=== PATIENT | female | born 1985 | race Caucasian/White ===

== ENCOUNTER → 2017-04-07 | Outpatient (CLI) | payer BC, OTHER ==
[~2017-04-07] MED LIST: ASPI325T45 PO; CLON0.5T3 PO; GUAI100S18 PO; LEVO1TAB34 PO
== END | disposition home or self-care (01) ==
LOC: C.RDSM 13:21
PROVIDERS: ATTEND Physical Medicine & Rehabilitation Sports Medicine
DX: M25.561 Pain in right knee (principal)

== ENCOUNTER → 2017-11-19 | Outpatient (CLI) | payer BC ==
--- NOTE | 2017-11-19 09:01 | DIAGNOSTIC IMAGING REPORT ---
R KNEE 4 OR MORE CLINICAL HISTORY: RIGHT KNEE PAIN pain COMPARISON: 04/07/2017 DISCUSSION: The bones and joint spaces appear intact. There is no evidence of fracture, dislocation or bony disease. Joint spaces are well-maintained. Minimal peripheral osteophytic reaction from the lateral joint compartment of the right knee. No significant joint effusion. IMPRESSION: Minimal degenerative osteophytic change right knee. No acute process. Remainder of the study is negative. The above report was generated using voice recognition software. It may contain grammatical, syntax or spelling errors. Electronically signed by: Harpreet Ag M.D. 11/19/2017 9:00 AM Dictated Date/Time: 11/19/2017 8:59 AM
== END | disposition home or self-care (01) ==
LOC: C.RDSM 08:45
PROVIDERS: ATTEND Physician Assistant
DX: M22.41 Chondromalacia patellae, right knee (principal); S83.271D Complex tear of lateral meniscus, current injury, right knee, subsequent encounter; X58.XXXD Exposure to other specified factors, subsequent encounter

== ENCOUNTER → 2017-12-23 | Outpatient (CLI) | payer OTHER, BC ==
[~2017-12-23] MED LIST changes: +OPTIRAY 320 IV PRN
--- NOTE | 2017-12-23 14:14 | DIAGNOSTIC IMAGING REPORT ---
CT OF THE ABDOMEN AND PELVIS WITH CONTRAST CLINICAL HISTORY: Left groin pain. Evaluate for hernia. COMPARISON STUDY: Right upper quadrant ultrasound October 25, 2008 and renal ultrasound August 02, 2015. TECHNIQUE: Following IV administration of 119 mL of Optiray-320, axial images of the abdomen and pelvis were obtained from the lung bases to the proximal femurs. Images were reviewed in the axial, sagittal, and coronal planes. IV contrast was administered without complication. A dose lowering technique was utilized adhering to the principles of ALARA. Oral contrast was administered. CT DOSE: 1489.26 mGycm FINDINGS: The liver, spleen, adrenal glands, kidneys and pancreas are normal. There is no biliary or pancreatic ductal dilatation. There is no hydronephrosis. No perinephric infiltration is present. No urinary calculi are identified. Caliber and wall thickness of small and large bowel are normal. The appendix is normal. A 1.8 cm rim-enhancing right adnexal lesion suggests a corpus luteal cyst. The ovaries are not enlarged. There is no left groin hernia. Note is made of a small fat-containing ventral supraumbilical hernia. Hernia neck measures 1.8 cm in transverse dimension. There are no suspicious osseous lesions. Small amount of fluid within the pelvis is likely physiologic. IMPRESSION: 1. No acute process within the abdomen or pelvis. 2. No left groin hernia. 3. Small fat-containing supraumbilical ventral hernia. Electronically signed by: Umesh Bartlett M.D. 12/23/2017 2:13 PM Dictated Date/Time: 12/23/2017 2:03 PM
== END | disposition home or self-care (01) ==
LOC: C.CTS 13:17
PROVIDERS: ATTEND Nurse Practitioner Family
DX: R10.32 Left lower quadrant pain (principal); K43.9 Ventral hernia without obstruction or gangrene

== ENCOUNTER 2022-03-21 14:25 | Inpatient (IN) ==
[2022-03-21] MEDS ORDERED: OXYTOCIN 30 UNITS/500 ML BAG IV PRN (15:36)
[2022-03-21] MEDS ORDERED: ePHEDrine sulfate 50 MG/ML AMP ONE (16:17)
[2022-03-21] MEDS: LACTATED RINGER'S 1,000 ML IV PRN ×3 (16:17→19:30)
[2022-03-21] MEDS ORDERED: fentaNYL 2MCG/ML ROPIVACAINE 1.25MG/ML 100 ML BAG EPI ONE (16:18)
[2022-03-21] MEDS ORDERED: fentaNYL citrate 100 MCG/2 ML VIAL ONE ×2 (16:18→20:04)
[2022-03-21] MEDS ORDERED: BUPIVACAINE 0.25% 30 ML VIAL ONE (16:18)
[2022-03-21] MEDS ORDERED: SODIUM CHLORIDE 0.9% INJ 10 ML VIAL ONE (16:18)
--- NOTE | 2022-03-21 16:32 | Anesthesiology Consultation ---
Date of Service March 21, 2022 Assessment & Plan (1) Encounter for pre-operative examination: Chart Review Chart Review: Acceptable Risk for Labor Epidural History Height/Weight Height: 5 ft 7 in Weight: 151.953 kg Allergies Allergy/AdvReac Type Severity Reaction Status Date / Time acetaminophen Allergy Unknown FACIAL Verified 03/18/22 10:51 SWELLING codeine Allergy Unknown FACIAL Verified 03/18/22 10:51 SWELLING Medications Home Medications Medication Instructions Recorded Confirmed Last Taken doxylamine succinate [Unisom PO 07/28/21 03/18/22 Unknown (doxylamine)] ondansetron HCl 4 mg tablet 4 mg PO DAILY #30 tab 07/28/21 03/18/22 Unknown (Zofran) prenat.vits,severo,lov-emgb-sasls 1 tab PO DAILY 07/28/21 03/18/22 Unknown pyridoxine (vitamin B6) PO 07/28/21 03/18/22 Unknown promethazine 25 mg tablet 25 mg PO Q6H PRN #20 tab 08/20/21 03/18/22 Unknown Active Medications Generic Name Dose Route Start Last Admin Trade Name Freq PRN Reason Stop Dose Admin Lactated Ringer's 1,000 mls @ 125 mls/hr 03/21/22 15:36 03/21/22 16:17 Lr IV 03/23/22 15:35 999 mls/hr .Q8H PRN Administration L&D Protocol Protocol Past Medical History Medical History (Updated 03/21/22 @ 16:31 by Jareth Land MD) Diaphragmatic hernia History of chicken pox Obesity affecting Past Family History Family History Mother Diabetes Hypertension Denies family history of Ovarian cancer Breast cancer Colorectal cancer Past Surgical History Surgical History S/P arthroscopy of knee Social History Smoking Status: Former smoker Hx Alcohol Use: No Hx Substance Use: No substance use type: does not use Physical Exam Vital Signs Last Vital Signs Temp 36.9 C 03/21/22 16:05 Resp 20 03/21/22 16:05
[2022-03-21 16:48] LABS: Hematocrit (blood only) 38.1 % (37-47); Mean Corpuscular Hemoglobin 31.9 pg (25-34); Mean Corpuscular Hgb Conc 34.1 g/dL (32-36); Mean Corpuscular Volume 93.6 fL (80-100); Platelet Count 293 K/uL (130-400); Red Blood Count 4.07 M/uL (4.2-5.4); White Blood Count 20.13 K/uL (4.8-10.8)
[2022-03-21] MEDS ORDERED: ONDANSETRON INJ 2 MG/ML 2 ML VIAL IV PRN ×2 (17:35→20:35)
[2022-03-21] MEDS ORDERED: fentaNYL 2MCG/ML ROPIVACAINE 1.25MG/ML 100 ML BAG EPI PRN (17:35)
[2022-03-21] MEDS ORDERED: NALOXONE HCL 0.4 MG/1 ML VIAL/CARP IV PRN ×2 (17:35→20:35)
[2022-03-21] MEDS ORDERED: ePHEDrine sulfate 50 MG/ML AMP IV PRN ×2 (17:35→20:35)
[2022-03-21] MEDS ORDERED: NALOXONE HCL 1 MG in SODIUM CHLORIDE 0.9% 1000ML 1,000 ML IV PRN ×2 (17:35→20:35)
[2022-03-21] MEDS ORDERED: LIDOCAINE 2%/EPINEPHRINE 1:200,000 20 ML SDV ONE (19:33)
[2022-03-21] MEDS ORDERED: LACTATED RINGER'S 1,000 ML IV SCH (20:00)
--- NOTE | 2022-03-21 20:01 | History & Physical Report ---
Date of Service March 21, 2022 Assessment & Plan (1) Obesity affecting : Plan: section. The patient was counseled to the nature of the procedure including alternatives such as labor. Risks were discussed including bleeding infection injury to bowel bladder ureter vessels and even baby. Deep Vein thrombosis, pulmonary embolus discussed. Breakdown of incision reviewed. Deep vein thrombosis pulmonary embolus hernia and failure of the incision to he al were discussed Patient verbalized understanding of this and was given ample time to ask questions Patient has had minimal relief with her epidural she was given a spinal at the same time as well and had some relief with that but since the spinal is worn off it has resulted in lack of pain relief for her our anesthesiologist to place the epidural was senior anesthesiologist he was a technically very challenging when I reviewed the options with Dr. Humphrey and we offered the patient a repeat epidural and we also offered the patient to stop and perform a as her pain is so intense. I reviewed the option of an epidural and that this was probably the ideal choice as it would give her a chance of vaginal delivery however her cervix is 6 to 7 cm and she is getting some cervical swelling it discussed the possibility of a failure to progress and the baby is thought to be large on imaging in the office The patient wishes to proceed to anesthesia aware we discussed all ri sks options Admission and Anticipated Discharge Date Admission Date: March 21, 2022 History of Present Illness Primary Care Provider: Redd Hubbard MD Allergies Allergy/AdvReac Type Severity Reaction Status Date / Time acetaminophen Allergy Unknown FACIAL Verified 03/18/22 10:51 SWELLING codeine Allergy Unknown FACIAL Verified 03/18/22 10:51 SWELLING Home Medications Medication Instructions Recorded Confirmed Type doxylamine succinate [Unisom PO 07/28/21 03/18/22 History (doxylamine)] ondansetron HCl 4 mg tablet 4 mg PO DAILY #30 tab 07/28/21 03/18/22 Rx (Zofran) prenat.vits,severo,mke-teua-rilru 1 tab PO DAILY 07/28/21 03/18/22 History pyridoxine (vitamin B6) PO 07/28/21 03/18/22 History promethazine 25 mg tablet 25 mg PO Q6H PRN #20 tab 08/20/21 03/18/22 Rx Patient History Medical History (Updated 03/21/22 @ 16:31 by Jareth Land MD) Diaphragmatic hernia History of chicken pox Obesity affecting Surgical History S/P arthroscopy of knee Family History Mother Diabetes Hypertension Denies family history of Ovarian cancer Breast cancer Colorectal cancer Social History (Updated 07/28/21 @ 10:59 by Shanice Maloney) Smoking Status: Former smoker Hx Alcohol Use: No Hx Substance Use: No Preferred Language: Urdu Crop Duster Required: No Beliefs That Will Affect Care: None marital status: Single marital status details: kecia Gallegos (27) [phone] Current Living Situation: Significant Other Current Living Situation Comment: lives with fob, paretns, birds, dog current occupational status: employed current occupation: [employer] Other Information That Helps Us Care for You: No Feels Safe at Home: Yes Safety Concerns: Feels Safe At This Time Assistive Devices: None Review of Systems as per Subjective / HPI Physical Exam Constitutional: WD/WN, vitals as above well developed and well nourished Respiratory: normal respiratory effort, lungs clear to auscultation normal respiratory effort Cardiovascular: RRR, no murmur, no edema Gastrointestinal (Abdomen): normal bowel sounds, soft, nontender, no hepatosplenomegaly Results & Data ([facility]) Vital Signs (Past 12 Hours) Vital Signs Temp Pulse Resp BP Pulse Ox 03/21/22 19:54 99 H 100 03/21/22 19:49 99 H 100 03/21/22 19:44 94 H 100 03/21/22 19:40 96 H 155/74 H 03/21/22 19:39 108 H 98 03/21/22 19:38 95 H 158/77 H 03/21/22 19:34 94 H 100 03/21/22 19:29 93 H 100 03/21/22 19:24 95 H 100 03/21/22 19:20 87 139/86 03/21/22 19:19 99 H 100 03/21/22 19:14 101 H 100 03/21/22 19:09 86 98 03/21/22 19:05 73 150/70 H 03/21/22 19:04 82 100 03/21/22 18:59 95 H 100 03/21/22 18:54 85 100 03/21/22 18:50 78 145/68 H 03/21/22 18:49 78 100 03/21/22 18:44 86 100 03/21/22 18:39 83 100 03/21/22 18:35 67 20 134/70 03/21/22 18:34 87 100 03/21/22 18:29 84 100 03/21/22 18:24 71 100 03/21/22 18:20 75 138/70 03/21/22 18:19 77 100 03/21/22 18:14 73 100 03/21/22 18:09 67 100 03/21/22 18:05 67 131/65 03/21/22 18:04 64 100 03/21/22 17:59 72 123/61 100 03/21/22 17:55 77 126/62 03/21/22 17:54 75 100 03/21/22 17:49 81 100 03/21/22 17:48 73 131/66 03/21/22 17:46 72 122/71 03/21/22 17:44 79 119/63 100 03/21/22 17:42 75 127/66 03/21/22 17:40 75 126/62 03/21/22 17:39 77 100 03/21/22 17:38 93 H 129/67 03/21/22 17:36 92 H 131/64 03/21/22 17:34 87 126/67 100 03/21/22 17:32 64 120/64 03/21/22 17:30 73 118/63 03/21/22 17:29 75 98 03/21/22 17:28 75 133/63 03/21/22 17:25 80 18 148/84 H 03/21/22 17:24 79 98 03/21/22 17:19 82 98 03/21/22 17:14 95 H 99 03/21/22 17:09 89 99 03/21/22 17:04 91 H 98 03/21/22 16:59 85 99 03/21/22 16:54 100 H 99 03/21/22 16:49 79 98 03/21/22 16:44 85 99 03/21/22 16:39 93 H 84 L 03/21/22 16:36 83 18 107/83 03/21/22 16:34 75 99 03/21/22 16:05 98.4 F 20 Coding Level of Care Code None Diagnoses Obesity affecting O99.210
[2022-03-21] MEDS ORDERED: MoRPHine SULFATE PF 1 MG/ML 10 ML AMP/VIAL ONE (20:04)
[2022-03-21] MEDS ORDERED: PHENYLEPHRINE 100MCG/ML 5ML SYR ONE (20:09)
[2022-03-21] MEDS ORDERED: OXYTOCIN 10 UNITS/ML 10ML VIAL ONE (20:09)
[2022-03-21] MEDS ORDERED: ONDANSETRON INJ 2 MG/ML 2 ML VIAL ONE (20:09)
[2022-03-21] MEDS ORDERED: MoRPHine SULFATE 2 MG/ML CARP IV PRN (20:35)
[2022-03-21] MEDS ORDERED: NALOXONE HCL 0.08 MG in SYRINGE 1.8 ML IV PRN (20:35)
[2022-03-21] MEDS ORDERED: diphenhydrAMINE 50 MG/ML VIAL IV PRN (20:35)
[2022-03-21] MEDS ORDERED: LACTATED RINGER'S 500 ML IV PRN (20:35)
[2022-03-21] MEDS ORDERED: NALBUPHINE HCL INJ 10 MG/ML AMP IV PRN (20:35)
[2022-03-21] MEDS ORDERED: MoRPHine SULFATE PF 1 MG/ML 10 ML AMP/VIAL INT SPINAL ONE (20:35)
[2022-03-21] MEDS ORDERED: SODIUM CHLORIDE 0.9% 1000ML 1,000 ML IV SCH (20:45)
[2022-03-21] MEDS ORDERED: NO NARCOTICS OR SEDATIVES SCH (20:45)
[2022-03-21] MEDS ORDERED: DC INTRASPINAL MORPHINE SCH (20:45)
--- NOTE | 2022-03-21 20:54 | Anesthesia Procedure Note ---
Date of Service March 21, 2022 Anesthesia Post Epidural Note Vital Signs Vital Signs: Temp Pulse Resp BP Pulse Ox 36.9 C 99 H 20 155/74 H 100 03/21/22 16:05 03/21/22 19:54 03/21/22 18:35 03/21/22 19:40 03/21/22 19:54 Pain Intensity Bilateral Abdomen: Pain Intensity: 10 Notes Mental Status: alert / awake / arousable and participated in evaluation Patient Amnestic to Procedure: No Nausea / Vomiting: adequately controlled Pain: adequately controlled Airway Patency, RR, SpO2: stable & adequate BP & HR: stable & adequate Hydration State: stable & adequate Neuraxial Anesthesia: was administered Anesthetic Complications: no major complications apparent and Pt Satisfied with anesthetic care Epidural: With tip intact
--- NOTE | 2022-03-21 21:20 | Operative Report ---
PG Post Operative Report Pre & Post Diagnosis Operation Date: 03/21/22 20:00 Pre-Op Diagnosis: primary section for maternal intolerance to labor Post-Op Diagnosis: same as pre op I identified the patient and participated in the time-out.: Yes Procedure Operation Date: 03/21/22 20:00 Actual Procedures p Section in LD(Not Applicable) - Gabriela Felder MD, FACOG Surgeon Gabriela Felder MD, FACOG [employer] Nozzle[employer] Dr. Oliveira Estimated Blood Loss 500 Findings Consistent with Post-Op Diagnosis Specimens cord gases, blood Description of Procedure Regional anesthetic had been given by anesthesia patient was prepped and draped with a leftward tilt preoperative antibiotics had been given in appropriate timing by anesthesiology. Once the prep was allowed to fully dry timeout was performed. Pickups with teeth were used to test the incision area was found to be adequate for incision as the patient did not feel sharp pain. Scalpel was used to make a Pfannenstiel incision on the lower abdomen. We then cut through the subcutaneous fat down to the level of the anterior rectus sheath fascia this was cut in the midline and then extended laterally with the curved Argueta scissors. At this stage we then placed 2 Shahid clamps on the anterior aspect of the fascia. Using the curved Argueta's we are able to dissect the fascia superiorly away from the rectus muscles. Care was taken to maintain hemostasis. Shahid clamps were then placed to the inferior aspect of the anterior sheath of the fascia. Fascia was then dissected away from the rectus muscles inferiorly towards the pubic bone. A Shahid was then placed in the midline both inferiorly and superiorly. This was to allow exposure by retraction rectus muscles were in the midline with were then able to cut through the peritoneum and then enter the peritoneal cavity. Opening was enlarged to allow exposure of the peritoneal cavity both superiorly and inferiorly. Once adequate space was obtained a bladder retractor was placed to expose the lower segment Metzenbaums were used to dissect the bladder flap inferiorly away from the uterus. This was done sharply bladder retractor was then repositioned to expose the lower segment of the uterus Fresh scalpel was used to make a low transverse incision on the uterus. Uterus was then entered bluntly with the operators finger, membranes ruptured and the opening was enlarged using the operators fingers bluntly pulling superiorly and inferiorly to allow exposure. OP position. Live male Baby was delivered by first flexion of the head elevation of the head out of the pelvis and then pressure by the speech and language assistant on the maternal abdomen. Baby's head was then delivered mouth and then nares were suctioned and then using gentle traction the baby was fully delivered. Live vigorous infant. Fluid was clear cord clamped and cut cord gases obtained cord blood obtained baby handed to pediatrics. Placenta removed was removed with traction we ensure the entire placenta was removed with a moist lap sponge into the uterus Uterus was then exteriorized. IV Pitocin had been started by anesthesia tone improved there were no extensions the uterus was then closed using 0 Monocryl in a 2 layer closure the first layer closed in a running locked fashion from left to right and then a second closure from left to right in a running nonlocked fashion. At this stage hemostasis was excellent. Uterus was placed back in the peritoneal cavity with suction irrigation out and inspection of the uterus at this stage revealed excellent hemostasis Retractors were removed urine color was clear at this stage of the case we inspected the rectus muscles they were hemostatic fascia was closed with 0 Vicryl subcutaneous fat was irrigated and closed with 3-0 Vicryl skin closed with 4-0 subcuticular Monocryl MILENA dressing I attest to the content of the Intraoperative Record and any orders documented therein. Any exceptions are noted below. OB Procedure Charges 15556
[2022-03-21 21:32] LABS: Base Excess Cord Arterial Bld -12.7 mEq/L (-9-1.8); CO2 Cord Arterial Blood 87 mmHg (39.1-73.5); HCO3 Cord Arterial Blood 21 mmol/L (19.7-28.5); Oxygen Sat Cord Arterial Blood < 60.0 % (<60); PO2 Cord Arterial Blood 15 mmHg (4.1-31.7); pH Cord Arterial Blood < 7.00 (7.1-7.38)
[2022-03-21] MEDS ORDERED: HYDROCORTISONE ACETATE 25 MG SUPP PR PRN (21:38)
[2022-03-21] MEDS ORDERED: DIPHTHERIA/TETANUS/PERTUSSIS 0.5 ML SYR/VIAL IM ONE (21:38)
[2022-03-21] MEDS ORDERED: BENZOCAINE 20% AER SPR 82.5 GM CAN EXT PRN (21:38)
[2022-03-21] MEDS ORDERED: MAGNESIUM HYDROXIDE SUSP 30 ML UDC PO PRN (21:38)
[2022-03-21] MEDS ORDERED: SENNA 8.6 MG TAB PO PRN (21:38)
[2022-03-21] MEDS: OXYTOCIN 20 UNITS in LACTATED RINGER'S 1,000 ML IV SCH (22:22)
--- NOTE | 2022-03-21 22:37 | Anesthesiology Progress Note ---
Date of Service March 21, 2022 Anesthesia Post Procedure Vital Signs Vital Signs: Temp Pulse Resp BP Pulse Ox 03/21/22 22:33 80 98 03/21/22 22:30 81 114/56 L 03/21/22 22:28 85 98 03/21/22 22:23 79 99 03/21/22 22:20 87 113/54 L 03/21/22 22:18 77 98 03/21/22 22:13 83 97 03/21/22 22:10 94 H 18 106/51 L 98 03/21/22 22:08 77 98 03/21/22 22:03 74 99 03/21/22 22:00 77 18 108/59 L 98 03/21/22 21:58 78 99 03/21/22 21:53 80 99 03/21/22 21:50 78 18 100/55 L 98 03/21/22 21:48 83 99 03/21/22 21:43 78 99 03/21/22 21:40 18 98 03/21/22 21:38 80 100 03/21/22 21:33 79 100 03/21/22 21:30 37.0 C 18 98 03/21/22 21:29 90 135/60 03/21/22 21:28 91 H 100 03/21/22 19:54 99 H 100 03/21/22 19:49 99 H 100 03/21/22 19:44 94 H 100 03/21/22 19:40 96 H 155/74 H 03/21/22 19:39 108 H 98 03/21/22 19:38 95 H 158/77 H 03/21/22 19:34 94 H 100 03/21/22 19:29 93 H 100 03/21/22 19:24 95 H 100 03/21/22 19:20 87 139/86 03/21/22 19:19 99 H 100 03/21/22 19:14 101 H 100 03/21/22 19:09 86 98 03/21/22 19:05 73 150/70 H 03/21/22 19:04 82 100 03/21/22 18:59 95 H 100 03/21/22 18:54 85 100 03/21/22 18:50 78 145/68 H 03/21/22 18:49 78 100 03/21/22 18:44 86 100 03/21/22 18:39 83 100 03/21/22 18:35 67 20 134/70 03/21/22 18:34 87 100 03/21/22 18:29 84 100 03/21/22 18:24 71 100 03/21/22 18:20 75 138/70 03/21/22 18:19 77 100 03/21/22 18:14 73 100 03/21/22 18:09 67 100 03/21/22 18:05 67 131/65 03/21/22 18:04 64 100 03/21/22 17:59 72 123/61 100 03/21/22 17:55 77 126/62 03/21/22 17:54 75 100 03/21/22 17:49 81 100 03/21/22 17:48 73 131/66 03/21/22 17:46 72 122/71 03/21/22 17:44 79 119/63 100 03/21/22 17:42 75 127/66 03/21/22 17:40 75 126/62 03/21/22 17:39 77 100 03/21/22 17:38 93 H 129/67 03/21/22 17:36 92 H 131/64 03/21/22 17:34 87 126/67 100 03/21/22 17:32 64 120/64 03/21/22 17:30 73 118/63 03/21/22 17:29 75 98 03/21/22 17:28 75 133/63 03/21/22 17:25 80 18 148/84 H 03/21/22 17:24 79 98 03/21/22 17:19 82 98 03/21/22 17:14 95 H 99 03/21/22 17:09 89 99 03/21/22 17:04 91 H 98 03/21/22 16:59 85 99 03/21/22 16:54 100 H 99 03/21/22 16:49 79 98 03/21/22 16:44 85 99 03/21/22 16:39 93 H 84 L 03/21/22 16:36 83 18 107/83 03/21/22 16:34 75 99 03/21/22 16:05 36.9 C 20 Pain Intensity Bilateral Abdomen: Pain Intensity: 10 Transfer of Care Handoff Completed per policy Notes Mental Status: alert / awake / arousable and participated in evaluation Patient Amnestic to Procedure: No Nausea / Vomiting: adequately controlled Pain: adequately controlled Airway Patency, RR, SpO2: stable & adequate BP & HR: stable & adequate Hydration State: stable & adequate Neuraxial Anesthesia: was administered and sensory block is resolving Anesthetic Complications: no major complications apparent and Pt Satisfied with anesthetic care
[2022-03-21] MEDS: KETOROLAC 30 MG/ML VIAL IV PRN (22:51)
[2022-03-22] MEDS: KETOROLAC 30 MG/ML VIAL IV PRN ×2 (04:00→09:48)
[2022-03-22] MEDS: OXYTOCIN 20 UNITS in LACTATED RINGER'S 1,000 ML IV SCH (04:53)
[2022-03-22 07:16] LABS: Basophils # (auto) 0.01 K/uL (0-0.2); Basophils % (auto) 0.1 %; Eosinophils # (auto) 0.03 K/uL (0-0.5); Eosinophils % (auto) 0.2 %; Hematocrit (blood only) 29.5 % (37-47); Hemoglobin 9.8 g/dL (12.0-16.0); Immature Granulocytes # (auto) 0.07 K/uL (0.00-0.02); Immature Granulocytes % (auto) 0.4 %; Lymphocytes # (auto) 1.05 K/uL (1.2-3.4); Lymphocytes % (auto) 5.7 %; Mean Corpuscular Hemoglobin 31.5 pg (25-34); Mean Corpuscular Hgb Conc 33.2 g/dL (32-36); Mean Corpuscular Volume 94.9 fL (80-100); Mean Platelet Volume 10.4 fL (7.4-10.4); Monocytes # (auto) 0.64 K/uL (0.11-0.59); Monocytes % (auto) 3.5 %; Neutrophils # (auto) 16.61 K/uL (1.4-6.5); Neutrophils % (auto) 90.1 %; Platelet Count 203 K/uL (130-400); RDW Standard Deviation 48.3 fL (36.4-46.3); Red Blood Count 3.11 M/uL (4.2-5.4); White Blood Count 18.41 K/uL (4.8-10.8)
--- NOTE | 2022-03-22 09:09 | Obstetrical Progress Note ---
Date of Service March 22, 2022 Assessment & Plan (1) Obesity affecting : day #1 from section patient is doing well her pain is well controlled she has a amelia dressing and Tang catheter is in place continue current care we reviewed her section from yesterday baby was in occiput posterior position and was for maternal intolerance of labor and pain Subjective Voiding: tang catheter in place Diet Tolerance:: regular diet Lochia:: Small Physical Exam Gastrointestinal (Abdomen) normal bowel sounds, soft, nontender, no hepatosplenomegaly Results & Data ([facility]) Vital Signs (Past 12 Hours) Vital Signs Temp Pulse Pulse Resp BP BP Pulse Ox 03/22/22 06:00 18 96 03/22/22 05:00 14 94 03/22/22 04:00 98.6 F 82 16 107/71 99 03/22/22 03:00 16 99 03/22/22 02:00 16 95 03/22/22 01:00 98.6 F 84 20 118/70 96 03/22/22 00:00 98.6 F 74 18 127/78 97 03/21/22 23:33 79 97 03/21/22 23:30 18 99 03/21/22 23:28 81 97 03/21/22 23:25 85 93 03/21/22 23:23 83 97 03/21/22 23:20 81 111/51 L 03/21/22 23:18 77 97 03/21/22 23:13 86 97 03/21/22 23:08 78 98 03/21/22 23:03 80 98 03/21/22 23:00 98.6 F 18 98 03/21/22 22:58 82 98 03/21/22 22:53 88 98 03/21/22 22:50 99 H 176/84 H 03/21/22 22:48 78 97 03/21/22 22:43 81 98 03/21/22 22:38 84 97 03/21/22 22:33 80 98 03/21/22 22:30 81 18 114/56 L 98 03/21/22 22:28 85 98 03/21/22 22:23 79 99 03/21/22 22:20 87 113/54 L 03/21/22 22:18 77 98 03/21/22 22:13 83 97 03/21/22 22:10 94 H 18 106/51 L 98 07/02/22 22:08 77 98 03/21/22 22:03 74 99 03/21/22 22:00 77 18 108/59 L 98 03/21/22 21:58 78 99 03/21/22 21:53 80 99 03/21/22 21:50 78 18 100/55 L 98 03/21/22 21:48 83 99 03/21/22 21:43 78 99 03/21/22 21:40 18 98 03/21/22 21:38 80 100 03/21/22 21:33 79 100 03/21/22 21:30 98.6 F 18 98 03/21/22 21:29 90 135/60 03/21/22 21:28 91 H 100
[2022-03-22] MEDS: FERROUS SULFATE 325 MG TAB PO SCH (09:10)
[2022-03-22] MEDS: PRENATAL VITAMIN 1 TAB PO SCH (09:11)
[2022-03-22] MEDS: DOCUSATE SODIUM 100 MG CAP PO SCH ×2 (09:11→19:22)
[2022-03-22] MEDS: SIMETHICONE 80 MG CHEW PO SCH ×4 (09:11→19:22)
[2022-03-22] MEDS ORDERED: LACTATED RINGER'S 1,000 ML IV SCH (13:45)
[2022-03-22] MEDS ORDERED: diphenhydrAMINE 50 MG/ML VIAL IV PRN (14:35)
[2022-03-22] MEDS ORDERED: KETOROLAC 30 MG/ML VIAL IV PRN (14:35)
[2022-03-22] MEDS ORDERED: ONDANSETRON INJ 2 MG/ML 2 ML VIAL IV PRN (14:35)
[2022-03-22] MEDS ORDERED: PROMETHAZINE HCL 25 MG in SODIUM CHLORIDE 0.9% 50 ML IV PRN (14:35)
[2022-03-22] MEDS ORDERED: diphenhydrAMINE Capsule 25 MG CAP PO PRN (14:35)
[2022-03-22] MEDS: oxyCODONE/ACETAMINOPHEN 5mg/325mg TAB PO PRN ×3 (15:20→23:00)
[2022-03-22] MEDS: IBUPROFEN 600 MG TAB PO PRN ×3 (15:20→23:00)
[2022-03-22] MEDS ORDERED: bisacodyL 5 MG TABEC PO SCH (20:00)
[2022-03-23] MEDS: oxyCODONE/ACETAMINOPHEN 5mg/325mg TAB PO PRN ×4 (03:17→17:22)
[2022-03-23] MEDS: IBUPROFEN 600 MG TAB PO PRN ×4 (03:17→17:22)
[2022-03-23 07:08] LABS: Hematocrit (blood only) 28.6 % (37-47); Hemoglobin 9.4 g/dL (12.0-16.0)
--- NOTE | 2022-03-23 07:26 | Obstetrical Progress Note ---
Date of Service March 23, 2022 Assessment & Plan (1) Obesity affecting : day #2 from section patient is doing well her pain is well controlled she has a amelia dressing and Goff catheter is in place continue current care we reviewed her section from yesterday baby was in occiput posterior position and was for maternal intolerance of labor and pain Spinal headache, will consult anesthesia Physical Exam Constitutional WD/WN, vitals as above well developed and well nourished Respiratory normal respiratory effort, lungs clear to auscultation normal respiratory effort Cardiovascular RRR, no murmur, no edema Gastrointestinal (Abdomen) normal bowel sounds, soft, nontender, no hepatosplenomegaly Results & Data ([facility]) Vital Signs (Past 12 Hours) Vital Signs Temp Pulse Resp BP Pulse Ox 03/22/22 22:51 98.1 F 83 18 99/55 L 97 03/22/22 20:20 98.1 F 79 18 103/67 96
[2022-03-23] MEDS: PRENATAL VITAMIN 1 TAB PO SCH (07:46)
[2022-03-23] MEDS: FERROUS SULFATE 325 MG TAB PO SCH (07:46)
[2022-03-23] MEDS: DOCUSATE SODIUM 100 MG CAP PO SCH ×2 (07:46→21:17)
[2022-03-23] MEDS: SIMETHICONE 80 MG CHEW PO SCH ×4 (07:47→21:17)
--- NOTE | 2022-03-23 14:25 | Anesthesiology Progress Note ---
Date of Service March 23, 2022 Assessment & Plan Admission and Anticipated Discharge Date Admission Date: March 21, 2022 Subjective Called by staff for pt c/o headache. Pt had CSE for labor and SAB for C. Section 03/20/22. Headache is described as severe, bifrontal, relieved by recumbency. I concur with diagnosis of post-dural puncture headache (PDPH). I described to pt conservative treatment vs aggressive treatment with blood patch. Pt opted for blood patch. Informed consent obtained, time-out for procedure performed. In sitting position, Lumbar skin prepped with Duraprep and draped sterile. Lidocaine 1% to skin. 17g Touhy advanced to epidural space by LORT. Left and right antecubital fossae cleansed with Chloraprep. Phlebotomy attempted at left and right antecubital veins without success. 10cc was drawn in sterile manner from left brachial artery using 23g butterfly. 10cc autologous blood was then injected to epidural space. Procedure terminated at that point. Although volume of blood injected was sub-optimal, pt may get some relief. Will follow-up and re-attempt blood patch if desired. Physical Exam Vital Signs: Last Vital Signs Temp 36.6 C 03/23/22 07:50 Pulse 78 03/23/22 07:50 Resp 16 03/23/22 07:50 BP 96/64 L 03/23/22 07:50 Pulse Ox 98 03/23/22 07:50 Results & Data ([facility]) Medications Administered Docusate Sodium (Docusate Sodium 100 Mg Cap) 100 mg PO DAILY@ [facility] Stop: 04/21/22 07:59 Last Admin: 03/23/22 07:46 Dose: 100 mg Documented by: [id number] Admin: 03/22/22 19:22 Dose: 100 mg Documented by: [id number] Admin: 03/22/22 09:11 Dose: 100 mg Documented by: [id number] Ferrous Sulfate (Ferrous Sulfate 325 Mg Tab) 325 mg PO DAILY@08 [facility] Stop: 04/21/22 07:59 Last Admin: 03/23/22 07:46 Dose: 325 mg Documented by: [id number] Admin: 03/22/22 09:10 Dose: 325 mg Documented by: [id number] Lactated Ringer's (Lr) 1,000 mls @ 125 mls/hr IV .Q8H PRN; Protocol PRN Reason: L&D Protocol Stop: 03/23/22 15:35 Last Infusion: 03/21/22 22:23 Dose: 0 mls/hr Documented by: [id number] Admin: 03/21/22 19:30 Dose: 125 mls/hr Documented by: [id number] Infusion: 03/21/22 19:30 Dose: 125 mls/hr Documented by: [id number] Infusion: 03/21/22 17:25 Dose: 125 mls/hr Documented by: [id number] Admin: 03/21/22 17:00 Dose: 999 mls/hr Documented by: [id number] Infusion: 03/21/22 17:00 Dose: 999 mls/hr Documented by: [id number] Admin: 03/21/22 16:17 Dose: 999 mls/hr Documented by: [id number] Ibuprofen (Ibuprofen 600 Mg Tab) 600 mg PO Q4H PRN PRN Reason: Pain Stop: 04/20/22 21:37 Last Admin: 03/23/22 12:06 Dose: 600 mg Documented by: [id number] Admin: 03/23/22 07:47 Dose: 600 mg Documented by: [id number] Admin: 03/23/22 03:17 Dose: 600 mg Documented by: [id number] Admin: 03/22/22 23:00 Dose: 600 mg Documented by: [id number] Admin: 03/22/22 19:22 Dose: 600 mg Documented by: [id number] Admin: 03/22/22 15:20 Dose: 600 mg Documented by: [id number] Oxycodone/Acetaminophen (Oxycodone/Acetaminophen 5mg/325mg Tab) 1 - 2 tab PO Q4H PRN PRN Reason: Pain Stop: 04/05/22 14:34 Last Admin: 03/23/22 12:08 Dose: 1 tab Documented by: [id number] Admin: 03/23/22 07:47 Dose: 1 tab Documented by: [id number] Admin: 03/23/22 03:17 Dose: 2 tab Documented by: [id number] Admin: 03/22/22 23:00 Dose: 2 tab Documented by: [id number] Admin: 03/22/22 19:22 Dose: 2 tab Documented by: [id number] Admin: 03/22/22 15:20 Dose: 2 tab Documented by: [id number] Prenat Multivit/Set O Type Operator/Iron/Folic Ac ( Vitamin 1 Tab) 1 tab PO DAILY@08 [facility] Stop: 04/21/22 07:59 Last Admin: 03/23/22 07:46 Dose: 1 tab Documented by: [id number] Admin: 03/22/22 09:11 Dose: 1 tab Documented by: [id number] Simethicone (Simethicone 80 Mg Chew) 80 mg PO DAILY@08,13,17,21 [facility] Stop: 04/21/22 07:59 Last Admin: 03/23/22 07:47 Dose: 80 mg Documented by: [id number] Admin: 03/22/22 19:22 Dose: 80 mg Documented by: [id number] Admin: 03/22/22 18:23 Dose: 80 mg Documented by: [id number] Admin: 03/22/22 14:51 Dose: 80 mg Documented by: [id number] Admin: 03/22/22 09:11 Dose: 80 mg Documented by: [id number]
--- NOTE | 2022-03-23 20:00 | Anesthesiology Progress Note ---
Date of Service March 23, 2022 Assessment & Plan Admission and Anticipated Discharge Date Admission Date: March 21, 2022 Subjective Attempted Blood Patch earlier for PDPH. 10 cc blood was injected to epidural space. However this was not effective in relief of headache ad pt now with significant meningismus as well.. Pt desired to attempt to repeat procedure. Time out performed. Sitting position. Duraprep to lumbar skin. Local 1% lidocaine. At L3 - 4 + LORT at 9 cm. Catheter placed to 12cm and secured with Tegaderm. Pt returned supine. Ultrasound used to aid in phlebotomy at right antecubital vein. 20 cc autologous blood injected to epidural space. Pt c/o mild pressure in low back at 20 cc volume. Pty reported immediate dramatic improvement in headache with mild residual neck discomfort. Epidural catheter removed tip intact. Restrict activity 24hrs, then ad bree. Re-consult if needed. Physical Exam Vital Signs: Last Vital Signs Temp 36.8 C 03/23/22 16:00 Pulse 84 03/23/22 16:00 Resp 16 03/23/22 16:00 BP 92/59 L 03/23/22 16:00 Pulse Ox 98 03/23/22 16:00 Results & Data ([facility]) Medications Administered Docusate Sodium (Docusate Sodium 100 Mg Cap) 100 mg PO DAILY@ [facility] Stop: 04/21/22 07:59 Last Admin: 03/23/22 07:46 Dose: 100 mg Documented by: [id number] Admin: 03/22/22 19:22 Dose: 100 mg Documented by: [id number] Admin: 03/22/22 09:11 Dose: 100 mg Documented by: [id number] Ferrous Sulfate (Ferrous Sulfate 325 Mg Tab) 325 mg PO DAILY@08 [facility] Stop: 04/21/22 07:59 Last Admin: 03/23/22 07:46 Dose: 325 mg Documented by: [id number] Admin: 03/22/22 09:10 Dose: 325 mg Documented by: [id number] Ibuprofen (Ibuprofen 600 Mg Tab) 600 mg PO Q4H PRN PRN Reason: Pain Stop: 04/20/22 21:37 Last Admin: 03/23/22 17:22 Dose: 600 mg Documented by: [id number] Admin: 03/23/22 12:06 Dose: 600 mg Documented by: [id number] Admin: 03/23/22 07:47 Dose: 600 mg Documented by: [id number] Admin: 03/23/22 03:17 Dose: 600 mg Documented by: [id number] Admin: 03/22/22 23:00 Dose: 600 mg Documented by: [id number] Admin: 03/22/22 19:22 Dose: 600 mg Documented by: [id number] Admin: 03/22/22 15:20 Dose: 600 mg Documented by: [id number] Oxycodone/Acetaminophen (Oxycodone/Acetaminophen 5mg/325mg Tab) 1 - 2 tab PO Q4H PRN PRN Reason: Pain Stop: 04/05/22 14:34 Last Admin: 03/23/22 17:22 Dose: 1 tab Documented by: [id number] Admin: 03/23/22 12:08 Dose: 1 tab Documented by: [id number] Admin: 03/23/22 07:47 Dose: 1 tab Documented by: [id number] Admin: 03/23/22 03:17 Dose: 2 tab Documented by: [id number] Admin: 03/22/22 23:00 Dose: 2 tab Documented by: [id number] Admin: 03/22/22 19:22 Dose: 2 tab Documented by: [id number] Admin: 03/22/22 15:20 Dose: 2 tab Documented by: [id number] Prenat Multivit/[place]/Iron/Folic Ac ( Vitamin 1 Tab) 1 tab PO DAILY@08 [facility] Stop: 04/21/22 07:59 Last Admin: 03/23/22 07:46 Dose: 1 tab Documented by: [id number] Admin: 03/22/22 09:11 Dose: 1 tab Documented by: [id number] Simethicone (Simethicone 80 Mg Chew) 80 mg PO DAILY@08,,17,21 [facility] Stop: 04/21/22 07:59 Last Admin: 03/23/22 17:22 Dose: 80 mg Documented by: [id number] Admin: 03/23/22 14:41 Dose: Not Given Documented by: [id number] Admin: 03/23/22 07:47 Dose: 80 mg Documented by: [id number] Admin: 03/22/22 19:22 Dose: 80 mg Documented by: [id number] Admin: 03/22/22 18:23 Dose: 80 mg Documented by: [id number] Admin: 03/22/22 14:51 Dose: 80 mg Documented by: [id number] Admin: 03/22/22 09:11 Dose: 80 mg Documented by: [id number]
[2022-03-23] MEDS ORDERED: bisacodyL 10 MG SUPP PR PRN (21:16)
[2022-03-24] MEDS: oxyCODONE/ACETAMINOPHEN 5mg/325mg TAB PO PRN ×3 (00:01→10:13)
[2022-03-24] MEDS: IBUPROFEN 600 MG TAB PO PRN ×3 (04:36→10:13)
--- NOTE | 2022-03-24 08:09 | Obstetrical Progress Note ---
Date of Service March 24, 2022 Assessment & Plan (1) Encounter for care and examination after delivery: spinal headache now much improved after 2nd blood patch. will plan to discharge today and have MILENA dressing removed in the office this coming Wednesday. scripts sent to pharmacy listed. Subjective Ambulation: ambulating normally Voiding: no voiding problems Passing Gas:: Yes Diet Tolerance:: regular diet Lochia:: Small Feeding Type:: breast feeding headache much better but not completely resolved following 2nd blood patch last evening. oral pain meds working well for both incisional pain and the headache Review of Systems All systems reviewed & are unremarkable except as noted in HPI & below Physical Exam Constitutional WD/WN, vitals as above Gastrointestinal (Abdomen) Inspection/Auscultation: + abdominal surgical incision (MILENA dressing dry and intact) Psychiatric A+Ox3, euthymic affect Genitourinary OB Exam Abdomen: + fundal height Fundus: + firm and + relation to umbilicus (2 below) Results & Data ([facility]) Vital Signs (Past 12 Hours) Vital Signs Temp Pulse Resp BP Pulse Ox 03/24/22 04:40 98.4 F 73 18 98/65 L 97 03/24/22 00:10 98.1 F 81 18 106/69 98
[2022-03-24] MEDS: FERROUS SULFATE 325 MG TAB PO SCH (10:12)
[2022-03-24] MEDS: DOCUSATE SODIUM 100 MG CAP PO SCH (10:12)
[2022-03-24] MEDS: PRENATAL VITAMIN 1 TAB PO SCH (10:12)
[2022-03-24] MEDS: SIMETHICONE 80 MG CHEW PO SCH (10:12)
--- NOTE | 2022-03-26 14:36 | Discharge Summary ---
Date of Service March 26, 2022 Admission Exam (Per Admitting) Constitutional WD/WN, vitals as above well developed and well nourished Respiratory normal respiratory effort, lungs clear to auscultation normal respiratory effort Cardiovascular RRR, no murmur, no edema Gastrointestinal (Abdomen) normal bowel sounds, soft, nontender, no hepatosplenomegaly Discharge Data Consultations 03/21/22 15:36 Consult Anesthesiology Stat Procedures Performed Operation Date: 03/21/22 20:00 Actual Procedures p Section in LD(Not Applicable) - Gabriela Felder MD, [facility] Course (1) Encounter for care and examination after delivery: spinal headache now much improved after 2nd blood patch. will plan to discharge today and have MILENA dressing removed in the office this coming Wednesday. scripts sent to pharmacy listed. Coding Level of Care Code None Diagnoses Encounter for care and examination after delivery Z39.2
== END 2022-03-24 11:50 | disposition home or self-care (01) | DRG 788 ==
LOC: OPB 14:25 → 4S1 14:34 → 4E1 03-22 00:15
DX: O99.214 Obesity complicating childbirth; O75.0 Maternal distress during labor and delivery; Z37.0 Single live birth; Z88.5 Allergy status to narcotic agent; E66.9 Obesity, unspecified; Z3A.00 Weeks of gestation of pregnancy not specified; Z88.6 Allergy status to analgesic agent; Z87.891 Personal history of nicotine dependence; O89.4 Spinal and epidural anesthesia-induced headache during the puerperium